=== PATIENT | female | born 1960 | race Caucasian/White ===

== ENCOUNTER 2017-07-19 12:15 | Emergency (ER) | payer BC, OTHER ==
--- NOTE | 2017-07-19 12:31 | EDM.PDOC ---
ED HPI GENERAL MEDICAL PROBLEM - General Chief Complaint: Lower Extremity Injury/Pain Stated Complaint: RT ANKLE INJURY Time Seen by Provider: 07/19/17 12:15 Source of Information: Reports: Patient, Family History Limitations: Reports: No Limitations - History of Present Illness INITIAL COMMENTS - FREE TEXT/NARRATIVE: 57 y.o.w.f came to the ed shortly after she twisted her her r ankle and foot. Pt is not able to walk due to to pain at her right foot. 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 Pt denied any other acute medical issues. BP 155/97 pulse 95 Onset Date: 07/19/17 Onset Time: 11:25 Duration: Hour(s): Location: Reports: Lower Extremity, Right Quality: Reports: Ache Severity: Mild Improves with: Reports: Rest Worsens with: Reports: Movement Context: Reports: Trauma Associated Symptoms: Reports: No Other Symptoms Treatments AUXILIARY EQUIPMENT OPERATOR: Reports: NSAIDS (800 mg) - Related Data Allergies Allergy/AdvReac Type Severity Reaction Status Date / Time codeine Allergy Blurred Verified 07/19/17 12:27 Vision Gadolinium-Containing Allergy Chest Verified 07/19/17 12:27 Contrast Medi Presssure morphine Allergy Vomiting Verified 07/19/17 12:27 oseltamivir [From Tamiflu] Allergy Cannot Verified 07/19/17 12:27 Remember Sulfa (Sulfonamide Allergy Hives Verified 07/19/17 12:27 Antibiotics) Home Meds: Home Meds Multivit with Calcium,Iron,Min [Essential Daily] 1 tab PO DAILY 09/10/16 [ History] [place]-3S/DHA/Epa/Fish Oil/D3 [Fish Oil-Vit D3 Softgel] 1 cap PO DAILY 09/10/16 [ History] Ibuprofen 800 mg PO ASDIRECTED PRN 07/19/17 [History] Past Medical History Cardiovascular History: Reports: High Cholesterol Respiratory History: Reports: Bronchitis, Recurrent Gastrointestinal History: Reports: Colon Polyp Genitourinary History: Reports: Renal Calculus Other Genitourinary History: LITHOTRIPSEY, BLADDER REPAIR - Past Surgical History Female Surgical History: Reports: Hysterectomy, Lithotripsy/ESWL Social & Family History - Tobacco Use Smoking Status *Q: Never Smoker - Caffeine Use Caffeine Use: Reports: Coffee, Tea - Recreational Drug Use Recreational Drug Use: No Review of Systems - Review of Systems Review Of Systems: See Below Constitutional: Reports: No Symptoms Eyes: Reports: No Symptoms Ears: Reports: No Symptoms Nose: Reports: No Symptoms Mouth/Throat: Reports: No Symptoms Respiratory: Reports: No Symptoms Cardiovascular: Reports: No Symptoms GI/Abdominal: Reports: No Symptoms Genitourinary: Reports: No Symptoms Musculoskeletal: Reports: Foot Pain Skin: Reports: No Symptoms Neurological: Reports: No Symptoms Psychiatric: Reports: No Symptoms ED EXAM, GENERAL - Physical Exam Exam: See Below Exam Limited By: Physical Impairment General Appearance: Alert, WD/WN, Mild Distress Eye Exam: Bilateral Eye: Normal Inspection Ears: Normal External Exam Ear Exam: Bilateral Ear: Auricle Normal Nose: Normal Inspection, Normal Mucosa Throat/Mouth: Normal Inspection, Normal Lips Head: Atraumatic, Normocephalic Neck: Normal Inspection Respiratory/Chest: No Respiratory Distress, Lungs Clear Cardiovascular: Normal Peripheral Pulses, Regular Rate, Rhythm Peripheral Pulses: 1+: Femoral (L), Femoral (R) GI/Abdominal: Normal Bowel Sounds, Soft, Non-Tender (Female) Exam: Deferred Rectal (Female) Exam: Deferred Back Exam: Normal Inspection Extremities: Limited Range of Motion (r foot), Other (tender right lat foot) Neurological: Alert, Oriented, CN II-XII Intact, Normal Cognition, Abnormal Gait Psychiatric: Normal Affect, Normal Mood Skin Exam: Warm, Dry, Intact, Normal Color Lymphatic: No Adenopathy Course - Vital Signs Text/Narrative:: 57 y.o.w.f came to the ed shortly after she twisted her her r ankle and foot. Pt is not able to walk due to to pain at her right foot. 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 Pt denied any other acute medical issues. BP 155/97 pulse 95 PE: R ankle pin with lat foot swelling, no open wound, limited ROM r foot Imaging: R foot/ankle: comminuted right 5th metatarsal fx, mildly displaced. Official report is pending. Impression: Right foot/ankle: comminuted right 5th metatarsal fx, mildly displaced. 1.[address] Rothman, [facility]: Rest ice and elevation , no weight bearing Procedure: Short post splint applied, Crutches were given Reexam: Pt was doing fine. Plan: D/C with instructions Last Recorded V/S: Last Vital Signs Temp Pulse 69 07/19/17 13:32 Resp 18 07/19/17 12:15 BP 137/85 07/19/17 13:32 Pulse Ox 100 07/19/17 12:15 Departure - Departure Time of Disposition: 13:26 Disposition: Home, Self-Care 01 Condition: Good Clinical Impression: Metatarsal bone fracture Qualifiers: Encounter type: initial encounter Metatarsal bone: fifth Fracture type: closed Fracture alignment: displaced Laterality: right Qualified Code(s): S92.351A - Displaced fracture of fifth metatarsal bone, right foot, initial encounter for closed fracture - Discharge Information Referrals: Miracle Shepherd, [employer] [Primary Care Provider] - Forms: ED Department Discharge Additional Instructions: please f/u with ortho this saturday, please elevate r leg, apply ice to the affected area, Motrin for pain. no weight bearing to r foot. An orthopedic nurse will call you today. Please come back to the ed if your symptoms get worse acutely.
[2017-07-19 13:32] VITALS: BP 137/85
--- NOTE | 2017-07-19 14:48 | CR ---
INDICATION: Trauma, lump on lateral 5th metatarsal. RIGHT FOOT: Three views of the right foot were obtained and revealed an oblique fracture to transverse fracture - somewhat spiral in appearance - fracture of the proximal metaphysis of the 5th metatarsal in good position and alignment, there being only 1.5 mm distraction of the fracture fragments and no significant offset or angulation. A small plantar calcaneal spur is noted. IMPRESSION: Fifth metatarsal fracture with adequate position and alignment. Report was given by phone to Dr. Galdamez soon after the examination was completed on 07/19/2017. ISAC
--- NOTE | 2017-07-19 14:52 | CR ---
INDICATION: Stepped off curb, rolled ankle. RIGHT ANKLE: Three views of the right ankle were obtained and revealed some minimal degenerative changes, likely on the basis of previous trauma at the malleoli, especially at the medial, but these are minimal changes with no other significant bone or joint abnormality suggested, except to note a small plantar calcaneal spur. IMPRESSION: No acute fracture or dislocation. Ankle mortise appears intact. Report was given by phone to Dr. Galdamez soon after the examination was completed on 07/19/2017. ISAC
== END 2017-07-19 13:40 | disposition home or self-care (01) ==
LOC: FB.ED 12:15
DX: S92.351A Displaced fracture of fifth metatarsal bone, right foot, initial encounter for closed fracture (principal); E78.00 Pure hypercholesterolemia, unspecified; Z88.5 Allergy status to narcotic agent; Z88.6 Allergy status to analgesic agent; Z88.8 Allergy status to other drugs, medicaments and biological substances; Z90.710 Acquired absence of both cervix and uterus; Z88.2 Allergy status to sulfonamides; X50.1XXA Overexertion from prolonged static or awkward postures, initial encounter
CPT/HCPCS: 29515; 73610-RT; 73630-RT; 99283

== ENCOUNTER 2022-07-25 16:49 | Emergency (ER) | payer BC, OTHER ==
[2022-07-25] MEDS: Sodium Chloride 0.9% 10 ML Syringe FLUSH PRN ×2 (16:55→17:05)
[2022-07-25] MEDS ORDERED: Adenosine 6 MG/2 ML SDV IVPUSH ONE (17:07)
[2022-07-25 17:31] LABS: ESTIMATED GFR 58 mL/min (>60)
[2022-07-25] MEDS ORDERED: Aspirin 81 MG Tab.Chew PO ONE (17:51)
[2022-07-25] MEDS ORDERED: Sodium Chloride 0.9% 1,000 ML IV ONE (18:21)
[2022-07-25] MEDS ORDERED: Diltiazem 25 MG/5 ML SDV IVPUSH ONE (20:31)
[2022-07-25] MEDS ORDERED: Enoxaparin 80 MG/0.8 ML Syringe SUBCUT SCH (20:45)
[2022-07-26 00:39] VITALS: BP 147/85; PULSE 71
== END 2022-07-25 21:25 ==
LOC: FB.ED 16:49
DX: I47.1 Supraventricular tachycardia (principal); N28.9 Disorder of kidney and ureter, unspecified; E11.65 Type 2 diabetes mellitus with hyperglycemia; R77.8 Other specified abnormalities of plasma proteins; R79.89 Other specified abnormal findings of blood chemistry; R94.31 Abnormal electrocardiogram [ECG] [EKG]; R06.83 Snoring; G47.52 REM sleep behavior disorder; E78.00 Pure hypercholesterolemia, unspecified; Z88.5 Allergy status to narcotic agent; Z88.2 Allergy status to sulfonamides; Z88.8 Allergy status to other drugs, medicaments and biological substances; Z79.82 Long term (current) use of aspirin; Z79.899 Other long term (current) drug therapy; Z20.822 Contact with and (suspected) exposure to COVID-19; Z68.30 Body mass index [BMI] 30.0-30.9, adult
CPT/HCPCS: 36415; 71045; 80053; 81001; 83735; 84443; 84484; 85025; 85379; 85610; 86140; 87635; 93005; 96361; 96372; 96374; 96375; 99285; A9270; J0153; J1650; J3490; J7030; U0002

== ENCOUNTER 2023-03-03 00:28 | Emergency (ER) | payer OTHER ==
[2023-03-03] MEDS ORDERED: cloNIDine 0.1 MG Tab PO ONE (00:44)
[2023-03-03 00:47] VITALS: BP 190/92; PULSE 64
[2023-03-03 00:59] LABS: BASOPHILS ABSOLUTE AUTO 0.1 x10-3/uL (0.0-0.1); BASOPHILS PERCENT AUTO 0.8 % (0.2-1.5); EOSINOPHILS ABSOLUTE AUTO 0.1 x10-3/uL (0.0-0.8); EOSINOPHILS PERCENT AUTO 1.8 % (0.6-8.1); HEMATOCRIT 39.6 % (34.2-48.2); HEMOGLOBIN 13.3 g/dL (11.4-15.5); LYMPHOCYTES ABSOLUTE AUTO 2.1 x10-3/uL (1.0-4.4); LYMPHOCYTES PERCENT AUTO 29.2 % (18.4-52.1); MEAN CORPUSCULAR HGB CONC 33.5 g/dL (31.9-34.8); MEAN CORPUSCULAR VOLUME 86.4 fL (76.7-100.5); MEAN PLATELET VOLUME 8.8 fL (7.1-12.4); MONOCYTES ABSOLUTE AUTO 0.5 x10-3/uL (0.3-1.0); MONOCYTES PERCENT AUTO 6.9 % (4.4-15.7); NEUTROPHILS ABSOLUTE AUTO 4.4 x10-3/uL (1.5-6.3); NEUTROPHILS PERCENT AUTO 61.3 % (30.8-76.2); PLATELET COUNT,PLT 240 x10(3)uL (151-488); RED BLOOD CELL COUNT 4.58 x10(6)uL (3.60-5.20); RED CELL DISTRIBUTION WIDTH 13.2 % (12.3-16.5); WHITE BLOOD CELL COUNT,WBC 7.2 x10-3/uL (3.0-10.3)
[2023-03-03 01:01] LABS: BLOOD UREA NITROGEN,BUN 19 mg/dL (7-18); BUN/CREATININE RATIO 23.8 (9-20); CALCIUM 9.2 mg/dL (8.6-10.2); CARBON DIOXIDE,CO2 26 mmol/L (21-32); CHLORIDE,CL 103 mmol/L (100-110); CREATININE 0.8 mg/dL (0.55-1.02); EST CRCL DRUG DOSING (CG) 59.15 mL/min; ESTIMATED GFR 84 mL/min (>60); GLUCOSE RANDOM 176 mg/dL (80-116); POTASSIUM,K 3.5 mmol/L (3.5-5.3); SODIUM,NA 139 mmol/L (135-145)
== END 2023-03-03 01:40 | disposition home or self-care (01) ==
LOC: FB.ED 00:28
DX: I10 Essential (primary) hypertension (principal); E78.00 Pure hypercholesterolemia, unspecified; M19.90 Unspecified osteoarthritis, unspecified site; E11.9 Type 2 diabetes mellitus without complications; E66.9 Obesity, unspecified; Z68.30 Body mass index [BMI] 30.0-30.9, adult; Z86.16 Personal history of COVID-19; Z88.5 Allergy status to narcotic agent; Z88.2 Allergy status to sulfonamides; Z91.041 Radiographic dye allergy status; Z79.82 Long term (current) use of aspirin; Z79.84 Long term (current) use of oral hypoglycemic drugs; Z79.899 Other long term (current) drug therapy
CPT/HCPCS: 36415; 71045; 80048; 84484; 85025; 93005; 99284

== ENCOUNTER 2023-08-02 18:00 | Emergency (ER) | payer OTHER ==
[2023-08-02] MEDS ORDERED: traMADol 50 MG Tab PO ONE ×2 (18:01→18:47)
[2023-08-02] MEDS ORDERED: Ketorolac 30 MG/ML SDV IM ONE (18:47)
[2023-08-02] MEDS ORDERED: fentaNYL 100 MCG/2 ML SDV IVPUSH STA (20:46)
[2023-08-02 21:35] VITALS: BP 164/74; PULSE 67
== END 2023-08-02 21:15 | disposition home or self-care (01) ==
LOC: FB.ED 18:00
DX: S42.211A Unspecified displaced fracture of surgical neck of right humerus, initial encounter for closed fracture (principal); E11.9 Type 2 diabetes mellitus without complications; E78.00 Pure hypercholesterolemia, unspecified; Z79.84 Long term (current) use of oral hypoglycemic drugs; Z88.5 Allergy status to narcotic agent; Z91.041 Radiographic dye allergy status; Z88.7 Allergy status to serum and vaccine; Z88.2 Allergy status to sulfonamides; Z79.82 Long term (current) use of aspirin; W17.89XA Other fall from one level to another, initial encounter
CPT/HCPCS: 73030; 96372; 96374; 99283; A9270; J1885; J3010

== ENCOUNTER 2024-07-31 04:52 | Emergency (ER) | payer OTHER ==
[2024-07-31 05:20] LABS: BLOOD UREA NITROGEN,BUN 21 mg/dL (7-18); BUN/CREATININE RATIO 26.3 (9-20); CALCIUM 8.5 mg/dL (8.6-10.2); CARBON DIOXIDE,CO2 25 mmol/L (21-32); CHLORIDE,CL 104 mmol/L (100-110); CREATININE 0.8 mg/dL (0.55-1.02); EST CRCL DRUG DOSING (CG) 57.67 mL/min; ESTIMATED GFR 83 mL/min (>60); GLUCOSE RANDOM 153 mg/dL (80-116); SODIUM,NA 140 mmol/L (135-145)
[2024-07-31 05:22] LABS: BASOPHILS ABSOLUTE AUTO 0.1 x10-3/uL (0.0-0.1); EOSINOPHILS ABSOLUTE AUTO 0.2 x10-3/uL (0.0-0.8); EOSINOPHILS PERCENT AUTO 2.2 % (0.6-8.1); HEMATOCRIT 44.5 % (34.2-48.2); HEMOGLOBIN 14.9 g/dL (11.4-15.5); LYMPHOCYTES ABSOLUTE AUTO 1.8 x10-3/uL (1.0-4.4); LYMPHOCYTES PERCENT AUTO 24.9 % (18.4-52.1); MEAN CORPUSCULAR HEMOGLOBIN 28.8 pg (23.9-33.9); MEAN CORPUSCULAR HGB CONC 33.4 g/dL (31.9-34.8); MEAN CORPUSCULAR VOLUME 86.4 fL (76.7-100.5); MEAN PLATELET VOLUME 8.6 fL (7.1-12.4); MONOCYTES ABSOLUTE AUTO 0.5 x10-3/uL (0.3-1.0); NEUTROPHILS ABSOLUTE AUTO 4.7 x10-3/uL (1.5-6.3); NEUTROPHILS PERCENT AUTO 64.9 % (30.8-76.2); PLATELET COUNT,PLT 279 x10(3)uL (151-488); RED BLOOD CELL COUNT 5.15 x10(6)uL (3.60-5.20); RED CELL DISTRIBUTION WIDTH 13.8 % (12.3-16.5); WHITE BLOOD CELL COUNT,WBC 7.2 x10-3/uL (3.0-10.3)
[2024-07-31 05:31] LABS: A/G RATIO 1.1; ALANINE AMINOTRANSFERASE,ALT 33 U/L (12-36); ALBUMIN 3.6 g/dL (3.2-4.6); ALKALINE PHOSPHATASE 136 IU/L (56-112); ASPARTATE AMNIOTRANSFERASE,AST 19 IU/L (5-25); BILIRUBIN TOTAL 0.6 mg/dL (0.1-1.3); PROTEIN TOTAL,TP 6.9 g/dL (6.0-8.0)
[2024-07-31] MEDS: Aspirin 81 MG Tab.Chew PO ONE (05:46)
[2024-07-31 06:59] VITALS: BP 144/78; PULSE 66
== END 2024-07-31 06:45 | disposition home or self-care (01) ==
LOC: FB.ED 04:52
DX: R07.2 Precordial pain (principal); R07.89 Other chest pain; I10 Essential (primary) hypertension; E78.00 Pure hypercholesterolemia, unspecified; J40 Bronchitis, not specified as acute or chronic; K21.9 Gastro-esophageal reflux disease without esophagitis; E11.9 Type 2 diabetes mellitus without complications; E66.9 Obesity, unspecified; Z68.27 Body mass index [BMI] 27.0-27.9, adult; Z87.891 Personal history of nicotine dependence; Z79.899 Other long term (current) drug therapy; Z79.82 Long term (current) use of aspirin; Z79.84 Long term (current) use of oral hypoglycemic drugs; Z88.2 Allergy status to sulfonamides; Z88.5 Allergy status to narcotic agent; Z88.8 Allergy status to other drugs, medicaments and biological substances
CPT/HCPCS: 36415; 71046; 80053; 84484; 85025; 85379; 93005; 99285; A9270; 93010; 99283